=== PATIENT | female | born 1965 | race Caucasian/White ===

== ENCOUNTER → 2017-07-18 | Outpatient (CLI) | payer OTHER ==
[2017-07-18 10:50] LABS: ALBUMIN 3.5 g/dL (3.4-5.0); ALKALINE PHOSPHATASE 115 U/L (46-116); ALT/SGPT 32 U/L (14-59); AST/SGOT 19 U/L (15-37); BILIRUBIN TOTAL 0.54 mg/dL (0.20-1.00); CALCIUM 8.8 mg/dL (8.5-10.1); CARBON DIOXIDE 25.9 mmol/L (21-32); CHLORIDE SERUM 106 mmol/L (98-107); CREATININE SERUM 0.8 mg/dL (0.6-1.0); GFR1 > 60 mL/min; GLUCOSE SERUM 99 mg/dL (74-106); HDL CHOLESTEROL 47 mg/dL (40-60); POTASSIUM SERUM 4.2 mmol/L (3.5-5.1); SODIUM SERUM 139 mmol/L (136-145); TRIGLYCERIDES 65 mg/dL (<150)
[2017-07-18 10:54] LABS: CHOLESTEROL 120 mg/dL (<200); CHOLESTEROL/HDL RATIO 2.6; TOTAL PROTEIN, SERUM 8.4 g/dL (6.4-8.2)
[2017-07-18 10:59] LABS: BASOPHIL % 0.4 % (0-2); PLATELET COUNT 385 x10^3mcL (130-400); RED CELL DISTRIBUTION WIDTH 13.9 % (11.5-14.5)
[2017-07-18 11:00] LABS: FREE THYROXINE INDEX 2.4 ug/dL (1.4-4.5); T3 TOTAL 1.18 ng/mL; T4(THYROXINE) 7.5 ug/dL (4.7-13.3)
== END | disposition home or self-care (01) ==
LOC: LB 10:08
PROVIDERS: Internal Medicine
DX: Z00.00 Encounter for general adult medical examination without abnormal findings (principal)
CPT/HCPCS: 84439

== ENCOUNTER 2018-05-02 06:51 | Day surgery (SDC) | payer OTHER ==
[~2018-05-02] VITALS: Ht 152.4 cm; Wt 86.2 kg
[2018-05-02 07:33] VITALS: BP 146/92
[2018-05-02 12:20] VITALS: BP 137/79
== END 2018-05-02 10:50 | disposition home or self-care (01) ==
LOC: GI 06:51 → OR 07:30 → GI 10:50
PROVIDERS: Internal Medicine Gastroenterology
PROC: 0DB68ZX Excision of Stomach, Via Natural or Artificial Opening Endoscopic, Diagnostic (ICD-10-PCS; principal; 2018-05-02 07:30)
PROC: 0DBF8ZZ Excision of Right Large Intestine, Via Natural or Artificial Opening Endoscopic (ICD-10-PCS; 2018-05-02 07:30)
DX: R10.13 Epigastric pain (principal); K57.30 Diverticulosis of large intestine without perforation or abscess without bleeding; D12.2 Benign neoplasm of ascending colon; K64.8 Other hemorrhoids; Z12.11 Encounter for screening for malignant neoplasm of colon
CPT/HCPCS: 43235; 45378; J1200; J1610; J2250; J2310; J3010; J3490

== ENCOUNTER → 2019-07-11 | Outpatient (CLI) | payer OTHER ==
[2019-07-11 12:41] LABS: UA SPECIFIC GRAVITY 1.015 (1.005-1.035); microscopic required? YES; urine erythrocyte TRACE (NEGATIVE)
[2019-07-11 12:43] LABS: BASOPHIL % 0.6 % (0-2); PLATELET COUNT 346 x10^3mcL (130-400); RED CELL DISTRIBUTION WIDTH 13.9 % (11.5-14.5)
[2019-07-11 13:11] LABS: ALBUMIN 3.7 g/dL (3.4-5.0); ALKALINE PHOSPHATASE 124 U/L (46-116); ALT/SGPT 33 U/L (14-59); AST/SGOT 29 U/L (15-37); BILIRUBIN TOTAL 0.54 mg/dL (0.20-1.00); CARBON DIOXIDE 31.9 mmol/L (21-32); CHLORIDE SERUM 107 mmol/L (98-107); CHOLESTEROL 134 mg/dL (<200); CHOLESTEROL/HDL RATIO 2.9; CREATININE SERUM 0.8 mg/dL (0.6-1.0); FREE T4 0.94 ng/dL (0.76-1.46); GFR1 > 60 mL/min; GLUCOSE SERUM 94 mg/dL (74-106); HDL CHOLESTEROL 46 mg/dL (40-60); POTASSIUM SERUM 3.2 mmol/L (3.5-5.1); SODIUM SERUM 144 mmol/L (136-145); TOTAL PROTEIN, SERUM 8.7 g/dL (6.4-8.2); TRIGLYCERIDES 88 mg/dL (<150)
== END | disposition home or self-care (01) ==
LOC: LB 12:23
DX: Z00.01 Encounter for general adult medical examination with abnormal findings (principal)
CPT/HCPCS: 84439